=== PATIENT | male | born 1965 | race Caucasian/White ===

== ENCOUNTER 2020-01-14 22:00 | Emergency (ER) | payer OTHER ==
[~2020-01-14] VITALS: Ht 177.8 cm; Wt 100.2 kg
[2020-01-14 22:10] VITALS: Ht 177.8 cm; Wt 100.2 kg
[2020-01-15 00:59] VITALS: BP 137/84
== END 2020-01-15 00:59 | disposition home or self-care (01) ==
LOC: ED 22:00
DX: R20.2 Paresthesia of skin (principal); M79.622 Pain in left upper arm; Z98.890 Other specified postprocedural states; R20.0 Anesthesia of skin